=== PATIENT | female | born 1965 | race Caucasian/White ===

== ENCOUNTER → 2016-08-04 | Outpatient (CLI) | payer OTHER | LOC: MMPC 10:00 | PROVIDERS: ATTEND Specialist | DX: I11.9 Hypertensive heart disease without heart failure (principal); Z01.810 Encounter for preprocedural cardiovascular examination; Z96.652 Presence of left artificial knee joint; R21 Rash and other nonspecific skin eruption | CPT/HCPCS: 99214; G0463 ==

== ENCOUNTER → 2016-09-29 | Outpatient (CLI) | payer OTHER | LOC: MMPC 10:00 | PROVIDERS: ATTEND Specialist | DX: I11.9 Hypertensive heart disease without heart failure (principal); Z98.890 Other specified postprocedural states; Z96.652 Presence of left artificial knee joint | CPT/HCPCS: 99212; G0463 ==

== ENCOUNTER → 2017-01-11 | Outpatient (CLI) | payer OTHER ==
--- NOTE | 2017-01-11 22:16 | DI ---
XR FOOT COMPLETE MIN 3VW,01/11/2017 10:54 AM: Clinical History: Body of great toe the left foot Previous Exam: August 24, 2014 Findings: Multiple views of the left foot are obtained, and demonstrate anatomic alignment without fractures. T here is a hallux valgus deformity which is unchanged since the prior exam. Impression: Stable left hallux valgus otherwise unremarkable.
== END ==
LOC: ORTHO 11:04
PROVIDERS: ATTEND Orthopaedic Surgery
DX: M21.612 Bunion of left foot (principal); M20.12 Hallux valgus (acquired), left foot
CPT/HCPCS: 73630; 99214

== ENCOUNTER → 2017-01-25 | Outpatient (CLI) | payer OTHER ==
--- NOTE | 2017-01-25 11:24 | EKG ---
[address] [place] [address] Measurements Intervals [place] Rate: 73 P: 49 WI: 143 QRS: 53 QRSD: 91 T: -21 QT: 395 QTc: 421 Interpretive Statements SINUS RHYTHM NONSPECIFIC T-WAVE ABNORMALITY Compared to ECG 07/21/2016 10:27:16 T-wave abnormality now present Left ventricular hypertrophy no longer present ST (T wave) deviation no longer present Electronically Signed On 01-25-17 14:04:46 MDT by Edinson Baker [id number]
[2017-01-25 11:27] LABS: BLOOD UREA NITROGEN 18 mg/dL (7-22); CALCIUM 9.3 mg/dL (8.7-10.7); EST GLOMERULAR FILTRATION > 60 (>60 ml/min/1.73m(2)); SERUM ALBUMIN 4.2 g/dL (3.5-4.8)
== END ==
LOC: EKG 10:43
PROVIDERS: ATTEND Orthopaedic Surgery
DX: I10 Essential (primary) hypertension (principal); M21.612 Bunion of left foot
CPT/HCPCS: 36415; 80053; 87641; 93005; 93010

== ENCOUNTER → 2017-02-08 | Outpatient (CLI) | payer OTHER ==
[2017-02-08 11:31] LABS: BLOOD UREA NITROGEN 17 mg/dL (7-22); BUN/CREATININE RATIO 21.25 (6-20); CALCIUM 9.4 mg/dL (8.7-10.7); EST GLOMERULAR FILTRATION > 60 (>60 ml/min/1.73m(2))
== END ==
LOC: LAB 11:03
PROVIDERS: ATTEND Orthopaedic Surgery
DX: M20.12 Hallux valgus (acquired), left foot (principal); M21.612 Bunion of left foot; I10 Essential (primary) hypertension
CPT/HCPCS: 36415; 80048; 99213; G0463

== ENCOUNTER 2017-02-11 10:05 | Day surgery (SDC) | payer OTHER ==
[~2017-02-11 10:05] MED LIST: LIDOCAINE W/ SODIUM BICARB 0.5 ML SYR ONE; Lactated Ringers 1,000 ML PRIMARY IV ONE; ceFAZolin Inj 2gm (Premix) 50 ML IV ONE
[2017-02-11 10:45] VITALS: RESP 16
--- NOTE | 2017-02-11 11:20 | EKG ---
[address] [address] Measurements Intervals [place] Rate: 66 P: 21 OR: 144 QRS: 1 QRSD: 105 T: -3 QT: 424 QTc: 438 Interpretive Statements SINUS RHYTHM MODERATE VOLTAGE CRITERIA FOR LVH, NONSPECIFIC T-WAVE ABNORMALITY Compared to ECG 01/25/2017 11:08:00 No significant changes Electronically Signed On 02-13-17 16:24:40 MDT by Edinson Baker [id number]
[2017-02-11] MEDS ORDERED: MEPIVACAINE HCL/PF 20 MG/1 ML IV ONE (11:28)
[2017-02-11] MEDS ORDERED: MIDAZOLAM 5 MG/1 ML ONE (11:29)
[2017-02-11] MEDS ORDERED: BUPIVACAINE 0.5% W/EPI MPF -30 ML VIAL IV ONE (11:29)
[2017-02-11] MEDS ORDERED: DEXAMETHASONE PF 10 MG/1 ML VIAL ONE (11:29)
[2017-02-11] MEDS ORDERED: fentaNYL Inj 250 MCG/5 ML VIAL ONE (11:29)
[2017-02-11] MEDS ORDERED: fentaNYL Inj 100 MCG/2 ML VIAL IVP PRN (11:48)
[2017-02-11] MEDS ORDERED: HYDROmorphone 2 MG/1 ML IVP PRN (11:48)
[2017-02-11] MEDS ORDERED: ONDANSETRON 4 MG/2 ML VIAL IVP PRN ×2 (11:48→15:06)
[2017-02-11] MEDS ORDERED: Ondansetron ODT Tab 8 MG TAB PO PRN ×2 (11:48→15:06)
[2017-02-11] MEDS ORDERED: NORMAL SALINE 10 ML SYRINGE FLUSH IVP PRN ×2 (11:48→15:06)
--- NOTE | 2017-02-11 11:48 | CRNA.PROCE ---
Nerve Block Documentation - - Safety Measures: Time Out Taken, Site Verified - - Type of Nerve Block Used: Left Popliteal Fossa Block (Analgesic block for Left Bunion surgery) Position for Nerve Block: Prone Moniters Used During Block: EKG, SPO2, NIBP Oxygen Sumpplented: Yes Sedation Used - Enter Amount in Comment Field: Midazolam (mg): Yes (2.5), Fentanyl (mcg): Yes (100) Skin Prep Used: ChloroPrep (Twice) Technique: Nerve Stimulator Nerve Block Needle Used: 80 mm ProBlk II Stimulation Hz: 1 Stimulation Staring mA: 1.6 Stimulation Ending mA: 0.5 Local Anesthetic - Enter Amt in Comment Field: 0.5 % Bupivicaine with Epinephrine 1:200,000 (mL): Yes (25 ml in 1.5 ml increments), 2 % Mepivacaine ( mL): Yes (25 ml in 1.5 ml increments) Additives to Nerve Blocks: Dexamethasone (mg): Yes (10)
[2017-02-11] MEDS ORDERED: Lactated Ringers 1,000 ML PRIMARY IV SCH ×2 (12:00→15:15)
[2017-02-11] MEDS ORDERED: LIDOCAINE MPF 2% - 5 ML (20 MG/1 ML) ONE (12:11)
[2017-02-11] MEDS ORDERED: BACITRACIN 50,000 UNIT VIAL IRRIG ONE (13:43)
[2017-02-11] MEDS ORDERED: Sodium Chloride 0.9% vial 10 ML ONE (13:43)
[2017-02-11] MEDS ORDERED: ePHEDrine Inj 50 MG/ML AMP ONE (14:00)
[2017-02-11] MEDS ORDERED: Lactated Ringers 1,000 ML PRIMARY IV ONE (14:15)
[2017-02-11] MEDS ORDERED: CALCIUM CARBONATE 500 MG (TUMS) CHEWABLE TABLET PO PRN (15:06)
[2017-02-11] MEDS ORDERED: BISACODYL 10 MG SUPPOSITORY RECTAL PRN (15:06)
[2017-02-11] MEDS ORDERED: MAG HYDROX/AL HYDROX/SIMETH 30 ML SUSP PO PRN (15:06)
[2017-02-11] MEDS ORDERED: BISACODYL 5 MG TABLET PO PRN (15:06)
[2017-02-11] MEDS ORDERED: HYDROcodone-APAP 7.5 MG-325 MG TABLET PO PRN (15:06)
[2017-02-11] MEDS ORDERED: ACETAMINOPHEN 325 MG TABLET PO PRN (15:06)
[2017-02-11] MEDS ORDERED: diphenhydrAMINE 25 MG CAPSULE PO PRN (15:06)
[2017-02-11] MEDS ORDERED: Prochlorperazine Tab 10 MG TAB PO PRN (15:06)
[2017-02-11] MEDS ORDERED: MORPHINE SULFATE 2 MG/1 ML IVP PRN (15:06)
[2017-02-11] MEDS ORDERED: IBUPROFEN 400 MG TABLET PO PRN (15:06)
[2017-02-11 17:58] VITALS: TEMP 97.8
[2017-02-12] MEDS ORDERED: ASPIRIN 325 MG EC TABLET PO SCH (09:00)
--- NOTE | 2017-02-12 10:28 | OPS CRUTCH ---
Diagnosis : Left Bunionectomy Referral Reason: Gait Training S: The patient states she has used crutches before. O: The patient ambulated 75 feet and then ascended and descended three stairs. A: The patient tolerated stair and gait training very well. P: No further therapy is indicated at this time. MTDD
== END 2017-02-11 17:53 | disposition home or self-care (01) ==
LOC: SDSC 10:05
PROVIDERS: ATTEND Orthopaedic Surgery
DX: M21.612 Bunion of left foot (principal)
CPT/HCPCS: 28299; 76001; 93005; 93010; 97116; A4216; J0670; J0690; J2001; J2250; J2704; J3010; S0020; J1100; J7120

== ENCOUNTER → 2017-02-15 | Outpatient (CLI) | payer OTHER | LOC: MMPC 10:00 | PROVIDERS: ATTEND Orthopaedic Surgery | DX: M21.612 Bunion of left foot (principal) ==

== ENCOUNTER → 2017-02-22 | Outpatient (CLI) | payer OTHER ==
--- NOTE | 2017-02-22 15:00 | DI ---
XR FOOT 2VW,02/22/2017 10:39 AM: Clinical History: Left foot pain Previous Exam: January 11, 2017 Findings: 2 views of the left foot are obtained, and demonstrate post surgical changes of the left first metata rsal phalangeal joint. Patient is status post first metatarsal osteotomy. Impression: Status post left first metatarsal phalangeal joint.
== END ==
LOC: ORTHO 10:43
PROVIDERS: ATTEND Orthopaedic Surgery
DX: Z47.89 Encounter for other orthopedic aftercare (principal); M79.672 Pain in left foot; Z98.890 Other specified postprocedural states
CPT/HCPCS: 73620

== ENCOUNTER → 2017-03-11 | Outpatient (CLI) | payer OTHER | LOC: MMPC 10:00 | PROVIDERS: ATTEND Orthopaedic Surgery | DX: M20.12 Hallux valgus (acquired), left foot (principal) ==

== ENCOUNTER → 2017-03-25 | Outpatient (CLI) | payer OTHER ==
--- NOTE | 2017-03-25 18:24 | DI ---
LEFT FOOT, 03/25/2017 12:00 PM: Clinical History: Left foot pain. Previous Exam: 01/11/2017; 02/22/2017. 3 weightbearing views are submitted. The patient is status post bunionectomy and osteotomy of the fir st metatarsal bone. The osteotomy lucencies are still visible. The remainder of the examination is no rmal. Reading: Status post bunionectomy and hallux valgus deformity correction.
== END ==
LOC: ORTHO 12:09
PROVIDERS: ATTEND Orthopaedic Surgery
DX: Z47.89 Encounter for other orthopedic aftercare (principal); M79.672 Pain in left foot; M20.12 Hallux valgus (acquired), left foot; Z98.890 Other specified postprocedural states
CPT/HCPCS: 73630

== ENCOUNTER 2018-05-19 12:00 | Inpatient (IN) ==
[2018-05-19 11:59] LABS: Hematocrit [HCT] 44.5 % (37.0-47.0); Hemoglobin [HGB] 15.3 g/dL (12.0-16.0); MEAN CORPUSCULAR HEMOGLOBIN 30.5 PG (27-31); MEAN CORPUSCULAR HGB CONC 34.4 g/dL (33-37); MEAN CORPUSCULAR VOLUME 88.8 FL (81-99); MEAN PLATELET VOLUME 10.2 FL (7.4-12.2); RED BLOOD COUNT 5.01 10^6/uL (4.20-5.40)
[~2018-05-19 12:00] MED LIST changes: -LIDOCAINE W/ SODIUM BICARB 0.5 ML SYR ONE; +LIDOCAINE W/ SODIUM BICARB 0.5 ML SYR SUBD ONE; +Nasal Sanitizer POPSWAB ampule 3 AMP (Nozin) PREOP DOSE ENOS SCH; +ceFAZolin Inj 2gm (Premix) 2 GM/50 ML BAG IV ONE; -ceFAZolin Inj 2gm (Premix) 50 ML IV ONE
[2018-05-19 12:17] LABS: BILIRUBIN,URINE NEGATIVE (NEG); CLARITY,URINE CLEAR (CLEAR); COLOR,URINE YELLOW (Y); GLUCOSE, URINE (UA) NEGATIVE (NEG); OCCULT BLOOD,URINE NEGATIVE (NEG); PH,URINE 5.5 (5.0-8.5); PROTEIN,URINE NEGATIVE (NEG); UROBILINOGEN,URINE 0.2 EU/dL (0.2)
[2018-05-19 12:19] LABS: URINE SAMPLE TYPE CLEAN CATCH URINE
[2018-05-19 13:02] LABS: BLOOD UREA NITROGEN 25 mg/dL (7-22); BUN/CREATININE RATIO 27.77 (6-20)
[2018-05-19] MEDS ORDERED: Sodium Chloride 0.9% vial 10 ML ONE ×2 (13:09→15:19)
[2018-05-19] MEDS ORDERED: THROMBIN (BOVINE) 20,000 UNIT KIT TOPICAL ONE ×2 (13:09→17:21)
[2018-05-19] MEDS ORDERED: BACITRACIN 50,000 UNIT VIAL IRRIG ONE (13:09)
[2018-05-19] MEDS ORDERED: fentaNYL Inj 250 MCG/5 ML VIAL ONE (14:04)
[2018-05-19] MEDS ORDERED: KETOROLAC 30 MG/1 ML VIAL ONE ×2 (14:04→18:39)
[2018-05-19] MEDS ORDERED: LIDOCAINE MPF 2% - 5 ML (20 MG/1 ML) ONE (14:04)
[2018-05-19] MEDS ORDERED: Propofol 1,000 MG/100 ML VIAL IV ONE ×2 (14:04→16:08)
[2018-05-19] MEDS ORDERED: KETAMINE 100 MG/1 ML - 5 ML ONE (14:04)
[2018-05-19] MEDS ORDERED: PROPOFOL 10 MG/1 ML (200 MG/20 ML) VIAL IV ONE ×3 (14:04→19:07)
[2018-05-19] MEDS ORDERED: MIDAZOLAM 5 MG/1 ML ONE (14:04)
[2018-05-19] MEDS ORDERED: HYDROmorphone 2 MG/1 ML ONE ×2 (14:04→19:37)
[2018-05-19] MEDS ORDERED: FAMOTIDINE 20 MG/2 ML VIAL IVP ONE ×2 (14:07→14:16)
[2018-05-19] MEDS ORDERED: ROCURONIUM 10 MG/1 ML - 5 ML VIAL IVP ONE (14:07)
[2018-05-19] MEDS ORDERED: REMIFENTANIL HCL 2 MG VIAL IV ONE (14:12)
[2018-05-19] MEDS ORDERED: CITRIC ACID/SODIUM CITRATE 30 ML CUP PO ONE (14:16)
[2018-05-19] MEDS ORDERED: LIDOCAINE W/ SODIUM BICARB 0.5 ML SYR ONE (14:21)
[2018-05-19] MEDS ORDERED: ePHEDrine Inj 50 MG/ML AMP ONE (15:16)
[2018-05-19] MEDS ORDERED: Sodium Chloride 0.9% vial 20 ML ONE (15:20)
[2018-05-19] MEDS ORDERED: PHENYLEPHRINE 10,000 MCG/1 ML VIAL ONE (15:22)
[2018-05-19] MEDS ORDERED: Hetastarch 6% + NS 500 ML IV ONE (15:40)
[2018-05-19] MEDS ORDERED: DEXAMETHASONE PF 10 MG/1 ML VIAL ONE (16:04)
[2018-05-19] MEDS ORDERED: REMIFENTANIL 1 MG/1 ML IV ONE (16:31)
[2018-05-19] MEDS ORDERED: Vancomycin Inj 1gm vial ONE (17:46)
[2018-05-19] MEDS ORDERED: HYDROmorphone 2 MG/1 ML IVP PRN ×2 (19:36→19:45)
--- NOTE | 2018-05-19 19:44 | CRNA.PROGR ---
Anesthesia Time - Procedure/Recovery Time Start Date: 05/19/18 End Date: 05/19/18 Anesthesia : Time In: 14:31 Anesthesia : Time Out: 19:29 Anesthesia : Total Time: 298 - Total Anesthesia Time Total Anesthesia Time (minutes): 298 - Other Weight: 90.718 kg Height: 5 ft 6 in Body Mass Index (BMI): 32.3 Physical Status: P2 Anesthesia Type: General Anesthesia : ET (NIMS monitoring technique)
[2018-05-19] MEDS ORDERED: Lactated Ringers 1,000 ML PRIMARY IV SCH (19:45)
[2018-05-19] MEDS ORDERED: ATROPINE SULFATE 0.4 MG/1 ML VIAL IVP PRN (19:45)
[2018-05-19] MEDS ORDERED: LIDOCAINE W/ SODIUM BICARB 0.5 ML SYR SUBD PRN (19:45)
[2018-05-19] MEDS ORDERED: ONDANSETRON 4 MG/2 ML VIAL IVP PRN ×2 (19:45→20:23)
[2018-05-19] MEDS ORDERED: Ondansetron ODT Tab 8 MG TAB PO PRN (19:45)
--- NOTE | 2018-05-19 19:45 | CRNA.PROGR ---
Anesthesia Recovery Phase I - Post Anesthesia Evaluation Patient's Condition on Arrival in Phase I: Stable Patient's Condition on Arrival in Phase II: Stable (Medicated for pain.) Pain Level: 9
[2018-05-19] MEDS ORDERED: MORPHINE SULFATE 4 MG/1 ML IVP PRN (20:23)
[2018-05-19] MEDS ORDERED: LABETALOL 20 MG/4 ML (5 MG/1 ML) SYRINGE IVP PRN (20:23)
[2018-05-19] MEDS ORDERED: tiZANidine Tab 4 MG TAB PO SCH (20:23)
[2018-05-19] MEDS ORDERED: HYDRALAZINE 20 MG/1 ML IVP PRN (20:23)
[2018-05-19] MEDS ORDERED: Ondansetron ODT Tab 4 MG TAB PO PRN (20:23)
[2018-05-19] MEDS ORDERED: DOCUSATE 100 MG CAPSULE PO PRN (20:23)
[2018-05-19] MEDS ORDERED: BISACODYL 10 MG SUPPOSITORY RECTAL PRN (20:23)
[2018-05-19] MEDS ORDERED: ACETAMINOPHEN 325 MG TABLET PO PRN (20:23)
[2018-05-19] MEDS ORDERED: CALCIUM CARBONATE 500 MG (TUMS) CHEWABLE TABLET PO PRN (20:23)
[2018-05-19] MEDS ORDERED: MORPHINE SULFATE 2 MG/1 ML IVP PRN (20:23)
[2018-05-19] MEDS: LISINOPRIL 20 MG TABLET PO SCH (20:47)
[2018-05-19] MEDS: AmLODIPine Tab 5 MG TABLET PO SCH (20:47)
[2018-05-19] MEDS: D5-1/2NS + 20mEq KCL 1,000 ML PRIMARY IV SCH (20:49)
[2018-05-19] MEDS: oxyCODONE-ACETAMINOPHEN 5-325 TAB PO PRN (22:04)
[2018-05-19] MEDS: ceFAZolin Inj 1 GM in Sodium Chloride 0.9% 100 ML IV SCH (22:57)
[2018-05-20] MEDS: KETOROLAC 15 MG/1 ML VIAL IVP SCH ×4 (00:54→18:54)
[2018-05-20] MEDS: oxyCODONE-ACETAMINOPHEN 5-325 TAB PO PRN ×2 (03:05→06:52)
[2018-05-20] MEDS ORDERED: Sodium Chloride 0.9% 500 ML PRIMARY IV ONE ×2 (03:29→04:27)
[2018-05-20 04:33] LABS: BASOPHILS # (AUTO) 0 10*3/UL; BASOPHILS % (AUTO) 0 % (0-1); EOSINOPHILS # (AUTO) 0.01 10*3/UL; EOSINOPHILS % (AUTO) 0.1 % (0-8); Hematocrit [HCT] 29.8 % (37.0-47.0); MEAN CORPUSCULAR HEMOGLOBIN 30.5 PG (27-31); MEAN CORPUSCULAR HGB CONC 33.6 g/dL (33-37); MEAN CORPUSCULAR VOLUME 90.9 FL (81-99); MEAN PLATELET VOLUME 10.3 FL (7.4-12.2); MONOCYTES # (AUTO) 0.19 10*3/UL (0.3-0.8); NEUTROPHILS # (AUTO) 8.71 10*3/UL; NEUTROPHILS % (AUTO) 89.5 % (50-80); RED BLOOD COUNT 3.28 10^6/uL (4.20-5.40)
[2018-05-20 05:01] LABS: PLATELET MORPHOLOGY COMMENT NORMAL MORPHOLOGY (NORM); RBC MORPHOLOGY COMMENT NORMAL MORPHOLOGY (NORM); WBC MORPHOLOGY COMMENT NORMAL MORPHOLOGY (NORM)
[2018-05-20 05:03] LABS: BLOOD UREA NITROGEN 26 mg/dL (7-22); BUN/CREATININE RATIO 28.88 (6-20)
[2018-05-20] MEDS ORDERED: Sodium Chloride 0.9% 100 ML IV ONE (05:03)
--- NOTE | 2018-05-20 05:09 | OPNOTE.NEU ---
Operative Note Operative Note: Neurosurgical Services Operative Note [facility] [id number] Joan Watts Date of Surgery: 05/20/18 Preoperative Diagnosis: LUMBAR INTERVERTEBRAL DISC DISPLACEMENT WITH RADICULOPATHY Post-Op Diagnosis Codes: SAME Procedure(s): 1. Lumbar decompression with complete facetectomy, 98416, 65359 2. Inner body Arthrodesis, 53971, 95280 3. Inner body structural bio-mechanical insert and rotate allograft, [id number] 4. Segmental Pedicle screw Instrumentation, 15195 5. Inner transverse fusion; (22014, 89917) 6. Bone graft preparation: A. [place] and preparation of autologous local bone, same incision, B. [place] of autologous iliac crest morselized bone, separate incision, C. Bone marrow aspirate, D. Addition of osteopromotive calcium compound and DBM, 7. Intra operative microsurgical technique 8. Intra operative fluoroscopic navigation, 42496-70-PM 9. Continuous intra operative neural monitoring, motor and sensory Surgeon(s): Bentley Santillan MD Personnel Recruiter(s): YULIYA Eubanks Anesthesia: General Anesthesia Anesthesiologist / TICKET CLERK: Mary Alejandro CRNA Brief Findings: Severe disc degeneration L4-5; central disc herniation L4-5, L5- S1. Procedure(s): We discussed the procedure, risks, advantages and disadvantages of surgical intervention at length. To prevent further pain, disability and potential progression of neurologic deficits, the patient would like to proceed with surgery. Introduction: After obtaining informed consent, careful consideration of the pre -operative studies and evaluation, the patient asked to proceed with surgery. The patient was taken to the operating room, given an anesthetic, positioned and prepared for surgery. All pressure points were meticulously padded and great care was taken to insure the patient was appropriately positioned to avoid any abnormal strain on the extremities or any other area. The operative region was prepared with iodine solution and isolated aseptically using routine sterile draping. Position / Approach: The patient was placed in the prone position such that a posterior approach could be taken to the lumbar spine. EXPOSURE: A midline incision was opened sharply and extended slightly cephalad and caudad so as to incorporate the abnormal levels of the patient's spine using the fluoroscope for visualization and planning. Dissection was carried with electrocautery through the subcutaneous tissues then subperiosteally along the spinous processes then lamina laterally to the lateral facet joints. A self retaining retractor was inserted exposing the spine from L4 to S1. DECOMPRESSION: As the spine was exposed, it was clear that the involved joints were markedly incompetent. The joints were removed medial to lateral confirming there was foraminal stenosis from herniated disk and facet hypertrophy which extended out into the foramen laterally. This was clearly a component of the patient's pain. To adequately decompress the levels, both facets bilaterally were completely removed at both levels. The decompression was much more extensive then would be required for placement of the posterior arthrodesis alone. Both the traversing as well as the exiting nerve roots were decompressed at each level. There was herniated disk beneath the thecal sac and removal was facilitated by removal of the joints as well as through the use of down biting curettes which resulted in minimal manipulation of the thecal sac. Annulotomies were placed bilaterally and disk distractor's were placed in the disk space. While distracting, a radical discectomy was performed bilaterally. The epidural space was explored extensively also to confirm no further pressure was present on any of the exiting or traversing neural elements. The lamina were also removed in their entirety from both levels. INNER BODY ARTHRODESIS (2-levels): At both of the exposed levels, annulotomies were placed sharply bilaterally and insert and rotate distractor's were advanced which were progressively larger into the disc space until the level became less mobile in a stepwise manner. Using curettes and rongeurs at both levels disc material was removed taking care to avoid disruption of the endplates. The endplates were carefully scraped of cartilaginous tissue. Insert and rotate machined structural bone grafts were placed bilaterally at both levels. Between the grafts, the patient's "bone graft" as described below was placed. This mixture of graft which was placed medial to the allograft structural spacers was also placed lateral to the bone spacers within the disk space. The bone spacers were countersunk appropriately using the fluoroscope for visualization. HARVEST / PREPARATION of BONE GRAFT: The "bone graft" was prepared from the patient's own bone derived from the left hip collected by curetting bone from the hip through a separate slab incision(53446). This morselized bone was admixed with bone marrow aspirate also obtained from the hip (39). Autologous local bone which was removed during the decompression through the same incision used for the fusion was stripped of surrounding soft tissues, morselized (36) and mixed with osteopromotive calcium compound as well as allograft demineralized bone matrix (), and this was combined with the previously described hip graft and concentrated bone marrow aspirate to form the "bone graft." POSTERIOR SEGMENTAL INSTRUMENTATION: The pedicles of above and below the abnormal discs were then identified under direct vision as well as using the fluoroscope for visualization. The pedicles were probed and tapped and pedicle screws were advanced, which were individually tested using motor electrical stimulation/monitoring and were identified to have appropriate impedances and no evidence of any contact with the surrounding neural elements. Screw lengths were selected by using a probe to sound the depth of the holes which had been tapped to determine the distance to the border of the anterior vertebral bodies. Having placed pedicle screws, they were interconnected with rods, and cross-link structural stabilizer(s) were placed between the rods. INNER TRANSVERSE FUSION: Attention was directed to the lateral aspect of the spine. The transverse processes above and below the level were eburnated using a high speed drill equipped with a benito bur. Between this region of bone, the patient's own bone, described previously as "bone graft mixture", consisting of allograft, demineralized bone matrix, calcium compound, bone marrow aspirate, as well as morselized graft from the hip were placed between the transverse processes.NEED FOR AUTOMOTIVE ENGINEER: Adan Wheeler PA-C, was instrumental throughout the operation to assist with exposure of the neural structures and protect them as the bony elements were removed. He was also instrumental during placement of the implant(s) which often takes more than two hands to perform safely and efficiently. OTHER TOOLS USED / UTILITY: All manipulation of the neural elements was performed using the microscope for visualization. As well, the fluoroscope was used to confirm the levels as indicated as well as to assist during implant placement and later to assess the patient's spinal alignment. There were no intra operative complications.Motor and sensory monitoring was performed throughout the procedure by a certified monitoring urinalysis technician in the room in communication with a remote monitoring physician and no abnormal neurological findings were encountered. CLOSURE: Thereafter, the wound was irrigated with copious amounts of antibiotic impregnated saline solution. Immaculate hemostasis was achieved using thrombin soaked Gelfoam, bone wax along the bony margins, as well as electrocautery. The wound was then closed in anatomical layers using Vicryl suture in the subcutaneous tissues followed by malini in the skin. Estimated blood loss was less than 100 cc and none was replaced. Following the procedure the patient will be returned to the supine position, extubated then transferred to the recovery room, anticipating them to be in stable condition as compared to pre- surgically. Estimated Blood Loss: 200 cc Operative hemorrhage? Yes, expected amount. Drains: Hemovac Condition: Good Complications: None Authenticated by Dr. Santillan On Production
[2018-05-20] MEDS: ceFAZolin Inj 1 GM in Sodium Chloride 0.9% 100 ML IV SCH (06:52)
[2018-05-20] MEDS ORDERED: Sodium Chloride 0.9% 500 ML IV ONE (07:49)
--- NOTE | 2018-05-20 08:17 | NEURO.PROG ---
Subjective Post Op Day: 1 Pain Management: PO Bernard Catheter: Yes Flatus: Yes Diet: Regular Ambulating: No Date of Service: 05/20/18 Time of Service: 08:00 Objective : Data - Labs CBC and BMP: 05/20/18 04:24 05/20/18 04:24 - Imaging Imaging Details: XRays ordered and pending. - Vital Signs Vital Signs and I&O: Vital Signs - Last Taken Temperature 98.1 F 05/20/18 04:33 Pulse Rate 85 05/20/18 07:00 Respiratory Rate 20 05/20/18 04:33 Blood Pressure 94/59 05/20/18 04:33 Pulse Ox 96 05/20/18 07:00 Intake and Output (24hr x 4 totals) 05/18/18 05/19/18 05/20/18 05/21/18 05:59 05:59 05:59 05:59 Intake Total 4277 / 4277 250 / 250 Output Total 1390 / 1390 100 / 100 Balance 2887 / 2887 150 / 150 Objective : Exam - General General Appearance: No Acute Distress, Cooperative - Head Head Exam: Normocephalic - Eye Eye Exam: Normal Appearance - ENT ENT Exam: Normal Oropharynx - Neck Neck Exam: Normal Inspection - Respiratory Respiratory Exam: Breathing Non Labored - Cardiovascular Cardiovascular Exam: Tachycardia - GI/Abdominal GI/Abdominal Exam: Normal Bowel Sounds, Non Distended - Rectal Rectal Exam: Deferred - External Exam: Deferred Exam: Deferred - Extremities Extremities Exam: Normal Inspection, Full ROM - Back Back Exam: Normal Inspection Additional Back Exam Details: intact midline lumbar surgical wound with surgical drain. - Neurological Neurological Exam: Alert, Oriented x 3, Speech Intact / Clear, Moves All Extremities Equally Additional Neurological Exam Details: She has not started ambulating this morning yet. - Psychiatric Psychiatric Exam: Normal Affect, Normal Mood - Integumentary Integumentary Exam: Normal Color, Warm, Dry Additional Integumentary Exam Details: intact lumbar surgical wound with drain. Assessment and Plan - Patient Problems (1) Status post lumbar spinal fusion Current Visit: Yes Status: Acute Code(s): Z98.1 - Arthrodesis status - Assessment / Plan Additional Assessment/Plan Details: Elevated lumbar surgical drain output. She is doing well. Monitor blood pressure and hold anti-hypertensives this morning. Continue to monitor surgical drain output. PT/OT to see. Plan Up and ambulate. Remove bernard catheter today.
[2018-05-20] MEDS: Non-Formulary Drug (Budesonide/Formoterol Fumarate [Symbicort 160-4.5 Mcg Inhaler] 2 INH) INH SCH ×2 (09:07→20:52)
[2018-05-20] MEDS: CHLORTHALIDONE 50 MG TABLET PO SCH (09:10)
[2018-05-20] MEDS: LISINOPRIL 20 MG TABLET PO SCH ×3 (09:11→21:02)
[2018-05-20] MEDS: METOPROLOL SUCCINATE 25 MG SR 24H TABLET PO SCH (09:11)
[2018-05-20] MEDS: AmLODIPine Tab 5 MG TABLET PO SCH ×3 (09:11→21:02)
[2018-05-20] MEDS: DULOXETINE 60 MG CAPSULE PO SCH (09:18)
[2018-05-20] MEDS: D5-1/2NS + 20mEq KCL 1,000 ML PRIMARY IV SCH ×2 (09:20→18:54)
[2018-05-20] MEDS: POTASSIUM GLUCONATE 500 MG PO SCH (09:34)
--- NOTE | 2018-05-20 10:00 | DI ---
XR L-SPINE 2-3 VW 05/20/2018 8:23 PM History: [facility] [place] [place] DI ^Assess post op alignment Comparison: L-spine x-ray 10/20/2017. Findings: AP and lateral views of the lumbar spine are submitted. The patient is status post transped icular L4-S1 fusion with transverse struts and interbody graft placement. There is no evidence of carolee dware fracture or loosening. The grafts are in good position. There are also likely L4 and L5 laminec tomies. Surgical malini are noted in the skin with gas in the dorsal soft tissues, an expected findi ng in the immediate postoperative timeframe. Drain tubing projects over the lower lumbar soft tissues . There are five non-rib bearing lumbar type vertebral bodies with hypoplastic T12 ribs. There is no evidence of fracture or subluxation. Vertebral body heights are preserved. Multilevel degenerative endplate changes are noted from the L3/4 through L5/S1 levels, not significantly changed from prior i maging. Impression: 1. Postsurgical changes consistent with transpedicular L4-S1 fusion and L4/L5 laminectomy. Correlate with desired surgical outcome.
--- NOTE | 2018-05-20 12:44 | CRNA.PROGR ---
Post Anesthesia Phase II - Post Anesthesia Phase II Patient Stable and Discharged To: Med/Surg Care Assumed By Surgeon: Bentley Santillan MD Temperature: 99.2 F Pulse Rate: 89 Respiratory Rate: 20 Blood Pressure: 120/68 Pulse Ox: 99 Total Eva Score at Discharge: 9 Post Anesthesia Discharge Criteria Met: Yes Additional Details: Was medicated for pain. Pain level rapidly decreased to a level acceptable to her. Transferred to obrien.
--- NOTE | 2018-05-20 12:47 | CRNA.PROGR ---
Anesthesia Note - Progress Notes Anesthesia Progress Note: Lying in bed, trying to eat her lunch. Has vomited at least twice this am. Both episodes after being up. Denies nausea last night. States that her pain has been kept at a manageable level. No headache. Mouth has been very dry. Urinary catheter out. No apparent anesthetic difficulties.
--- NOTE | 2018-05-20 15:17 | OTI REPORT ---
Thank you for the referral of Joan Watts. She was seen on 05/20/18 for an occupational therapy inpatient evaluation status post laminectomy. SUBJECTIVE: The patient is a 53-year-old female who had a laminectomy completed yesterday with Dr. Santillan. The patient does live here in [place]. She reports she does have a ; although she states he is more like a roommate. The patient's son also lives at home. She does have four steps to get into her home. Once in her home there are no stairs. She does report she has a bathtub and a toilet ; although she would like to have a shower seat as well as a high rise toilet seat. PAST MEDICAL HISTORY: Past medical history can be found in the patient's medical record. OBJECTIVE FINDINGS: General observations: The patient did have low blood pressure this morning so she was bollused. She does still have IV fluids, a catheter, and a drain tube so no dressing was completed this morning. Bed mobility: The patient was able to complete bed mobility with contact guard assist and education for correct maneuvers following precautions. Activities of daily living: The patient was issued a wiring inspector, sock aide, bath sponge, shower chair, and a high rise toilet seat. Ambulation: The patient was able to ambulate x150 feet with contact guard assist for safety. The patient was cued several times to not put her walker out so far; although this did get better toward the end of the session. ASSESSMENT: If patient is able to complete dressing activities this afternoon she will be discharged. Occupational Therapy Goals: To be met by discharge from inpatient: Patient will be able to fully dress upper extremities and lower extremities independently following all precautions for no bending/lifting/twisting. TREATMENT PLAN: Patient will be seen B.I.D during the week and one time per day over the weekend as an inpatient to address the above goals and objectives. INITIAL TREATMENT: Treatment today consisted of the initial evaluation activities only. MAGALIE
--- NOTE | 2018-05-20 16:32 | OT.PROG ---
Progress Note Progress Note: Occupational Therapy S: Pt. reports that she is feeling a little nauseous but is feeling much better than she did this morning. She would like to work on dressing with adaptive equipment. O: Pt. was seen at 1400 for skilled occupational therapy session with a focus on ADL performance. Pt. was lying supine in bed upon arrival and demonstrated the ability to move from supine to sitting EOB while performing a log roll. She then completed LE dressing to include donning pants with the use of a alfalfa dehydrator operator and verbal cues, completed UE dressing by donning a pullman clerk t-shirt with set up assist and doffed and donned socks with a sock aid, alfalfa dehydrator operator and verbal cues.Pt. then completed a sit to stand transfer from EOB and donned back brace with min. A. A: Pt. demonstrated the ability to complete dressing tasks with modified independence and functional bed mobility tasks while following precautions with SBA. P: Continue POC. SHARDA Roper/Huber
[2018-05-20] MEDS ORDERED: Pravastatin Tab 20 MG TAB PO SCH (21:00)
[2018-05-20] MEDS ORDERED: tiZANidine Tab 4 MG TAB PO SCH (21:00)
[2018-05-21] MEDS: KETOROLAC 15 MG/1 ML VIAL IVP SCH ×3 (01:36→13:21)
[2018-05-21] MEDS: oxyCODONE-ACETAMINOPHEN 5-325 TAB PO PRN (05:12)
[2018-05-21] MEDS: D5-1/2NS + 20mEq KCL 1,000 ML PRIMARY IV SCH (05:14)
[2018-05-21] MEDS: Non-Formulary Drug (Budesonide/Formoterol Fumarate [Symbicort 160-4.5 Mcg Inhaler] 2 INH) INH SCH (07:14)
[2018-05-21] MEDS ORDERED: Sodium Chloride 0.9% 500 ML IV ONE (08:26)
[2018-05-21] MEDS: AmLODIPine Tab 5 MG TABLET PO SCH (08:40)
[2018-05-21] MEDS: CHLORTHALIDONE 50 MG TABLET PO SCH (08:40)
[2018-05-21] MEDS: LISINOPRIL 20 MG TABLET PO SCH (08:41)
[2018-05-21] MEDS: POTASSIUM GLUCONATE 500 MG PO SCH (08:41)
[2018-05-21] MEDS: METOPROLOL SUCCINATE 25 MG SR 24H TABLET PO SCH (08:41)
--- NOTE | 2018-05-21 10:00 | PT.PROG ---
Progress Note Progress Note: S. pt says she is in a little more pain today than yesterday. But she is tolerating it well. O. Patient was taken to the toilet and was able to perform hakan care Independent. She performed sit to stand transfer x 2. Bed mobility from into and out of bed I using log roll technique. She ambulated 150 feet with walker and CGA. She ascended and Descended 4 stairs using right hand rail and walker on left. She was able to Yury and Doff back brace I. A. Pt did very well and is cleared from physical therapy for discharge. P. Cont POC
[2018-05-21] MEDS: DULOXETINE 60 MG CAPSULE PO SCH (10:16)
[2018-05-21 10:30] LABS: Hematocrit [HCT] 26.1 % (37.0-47.0); Hemoglobin [HGB] 8.4 g/dL (12.0-16.0)
[2018-05-21] MEDS ORDERED: Sodium Chloride 0.9% 500 ML PRIMARY IV ONE (11:16)
[2018-05-21 15:08] VITALS: BP 131/83; RESP 20; TEMP 98.3; O2SAT 94
--- NOTE | 2018-05-21 16:20 | NEURO.DC ---
Discharge Summary Admit Date: 05/19/18 Discharge Date: 05/21/18 Admitting Diagnosis: LUMBAR INTERVERTEBRAL DISC DISPLACEMENT WITH RADICULOPATHY Discharge Diagnosis: LUMBAR INTERVERTEBRAL DISC DISPLACEMENT WITH RADICULOPATHY Primary Surgery and Date: L4/5 and L5/S1 PLIF. 05/19/2018 Hospital Course: Patient had increasingly severe back and radiating Left leg pain and had failed all conservative managements. Surgical findings included severe disc degeneration at L4/5 and central disc herniation at L4/5 and L5/S1. The patient tolerated the above procedure well with immediate relief of L leg radicular pain; her post-op surgical/incisional pain was well controlled with PO analgesia and muscle relaxants. Post-op, she did have some hypotension but with crystalloid resuscitation recovered to a BP of 130/79. Antihypertensives were held post-op and patient was asked to f/u with her PCP, Dr. Loyd to check her BP and her medications. With the hemodilution from the NS boluses, the patient's H/H decreased but she was asymptomatic so she was asked to return the first day after discharge to re- check. Discharged on her pre-op medications except her ASA was held until she sees Dr. Santillan in clinic at 10-14 days post-op. She was also discharged on percocet 5/325mg q6 prn severe post-op pain, tazanidine q8 prn severe post-op muscle spasms, and Cipro 750 mg po BID x 10 doses F/U with Dr. Santillan in clinic at 10-14 days post-op. F/U with Dr. Loyd next week. Exam - Vitals Vital Signs: Vital Signs Temperature 98.3 F Temperature Source Temporal Artery Scan Pulse Rate [Pulse Oximeter] 97 Pulse Rate 89 Respiratory Rate 20 Blood Pressure [Left Arm] 131/83 Blood Pressure [Right Arm] 114/72 Blood Pressure 120/68 Pulse Ox 94 Oxygen Flow Rate 2 Oxygen Delivery Method Room Air Height 5 ft 6 in Weight 214 lb 6.4 oz
--- NOTE | 2018-05-23 11:15 | PTI REPORT ---
Thank you for the referral of Joan Watts. She was seen on 05/20/18 for an inpatient evaluation status post lumbar fusion. SUBJECTIVE: The patient is a 53-year-old female who underwent a lumbar fusion yesterday. The patient states that she is not feeling the best this morning and she has been having some issues with very low blood pressure and feeling lightheaded. The patient states that she did eat and receive a bolus prior to physical therapy and would like to try to sit up and walk as she is able. The patient lives with her roommate here in [place]. She states that they live in a trailer and there are four steps into the trailer. The patient reports that she was using a cane prior to surgery and denies any recent falls. The patient states that she has had multiple surgeries on the left side including two left knee surgeries and a foot surgery. PAST MEDICAL HISTORY: Past medical history can be found in the patient's medical record. OBJECTIVE FINDINGS: General observations: The patient was alert and oriented to setting upon PT arrival. The patient was laying in bed with head of bed elevated and she was on two liters of oxygen. Bed mobility: The patient was able to transfer from supine to sit with instructions on a proper log roll. Once sitting up, the patient stated that she did feel a little lightheaded and she had fair seated edge of bed balance. The patient did sit edge of bed for a few minutes and we reviewed lumbar precautions including no bending, lifting, or twisting, wearing brace whenever up, gentle nerve glides, and how to correctly perform a log roll to get into and out of bed. The patient stated she would like to try standing. Transfers: The patient was able to transfer from sit to stand with contact guard assist x1 for safety. Once standing, her LSO brace was placed around her. The patient said she was a little lightheaded but overall was doing well. Her blood pressure was at 106/63, which was an improvement from when it was initially taken when we entered the room. Ambulation: The patient was able to ambulate around the nurse's station two times, x150 feet with a standard walker and contact guard assist x1. The patient stated it felt really good to move around. She was a little lightheaded , but overall stated she was feeling really well. When we got back to the room her blood pressure was at 100/61 and her oxygen saturation was at 94%. ASSESSMENT: The patient has good rehab potential. Problem List: Patient is status post lumbar fusion Short-Term Goals: To be met by discharge from inpatient: Patient will be able to transfer from bed to stand, safely and independently including ability to perform proper log rolling to get into and out of bed. Patient will be able to don and doff her brace correctly and independently. Patient will be able to ambulate at least 150 feet with assistive device safely and independently. Patient will be able to ascend and descend at least 5 stairs with an assistive device safely and independently in order to return back home. Long-Term Goals: To be met following discharge from inpatient: Patient may attend outpatient physical therapy if deemed necessary upon time of discharge. TREATMENT PLAN: Patient will be seen B.I.D during the week and one time per day over the weekend as an inpatient to address the above goals and objectives. INITIAL TREATMENT: Treatment today consisted of the initial evaluation followed by one unit of functional activity. Following treatment the patient transferred to the chair where she was left with chair alarm set and call light within reach. MAGALIE
--- NOTE | 2018-05-23 11:26 | PT PM DAY ---
Diagnosis : Lumbar Fusion PM - Physical Therapy S: The patient states she is doing fair this afternoon. She states that her blood pressure still has been running a little bit low and she did vomit a few times this morning after the therapy session. O: The patient was issued written instructions for her lumbar precautions and these were once again reviewed with the patient. The patient did require min assist x1 in order to don her LSO brace. Once in place, the patient was able to ambulate 150 feet with standard walker and contact guard assist x1 for safety. Once back in her room, the patient was instructed on the log rolling technique and she was able to log roll back into bed. She was left in bed with call light within reach and alarm set. A: The patient is doing fair this afternoon. She has been having some issues with her blood pressure running on the lower end, but she is very willing to participate with therapy activities and states that she feels better when she is up and walking. We will do stairs with the patient tomorrow morning as she still does have an IV in place. We will also work on having the patient be able to don her LSO brace completely independently. P: Continue seeing patient BID during the week and one time per day over the weekend for transfers, ambulation, and range of motion/strengthening exercises. MAGALIE
== END 2018-05-21 16:40 | disposition home or self-care (01) | DRG 460 ==
LOC: MED/SURG 20:12
PROVIDERS: ADMIT Neurological Surgery; ATTEND Neurological Surgery